=== PATIENT | female | born 1985 | race Caucasian/White ===

== ENCOUNTER 2020-05-11 06:55 | Day surgery (SDCO) | payer OTHER ==
[~2020-05-11 06:55] MED LIST: BUSPIRONE HCL10 MG PO; FLEXERIL5 MG PO; IBUPROFEN800 MG PO; KEFLEX500 MG PO; SEROQUEL 100MG100 MG PO; VENLAFAXINE HC150 MG PO; VOLTAREN **OUT50 MG PO
[2020-05-11] MEDS ORDERED: VRAYLAR1.5 MG PO (07:15)
[2020-05-11 07:17] LABS: HCG (URINE) SCREEN NEGATIVE (NEGATIVE)
[2020-05-11 07:32] LABS: HGB 13.8 g/dl (12.5-16.0); MCH 28.9 pg (25.0-31.0); MCHC 32.1 g/dL (32.0-36.0); MPV 10.6 fL (6.0-9.5); RBC 4.78 M/uL (4.20-5.40); RDW 13.2 % (11.5-14.0); WBC 4.7 K/uL (4.0-10.5)
[2020-05-11] MEDS ORDERED: PERCOCET 5-3251 EACH PO (12:02)
[2020-05-11] MEDS ORDERED: IBUPROFEN800 M1 PO (12:02)
[2020-05-11] MEDS ORDERED: COLACE100 MG PO (12:02)
[2020-05-11] MEDS ORDERED: ZOFRAN4 M1 PO (12:02)
== END 2020-05-11 13:00 | disposition home or self-care (01) ==
LOC: FSDC 06:55
PROVIDERS: ADMIT Obstetrics & Gynecology
DX: N72 Inflammatory disease of cervix uteri (principal); N80.0 Endometriosis of uterus; N73.6 Female pelvic peritoneal adhesions (postinfective); N32.89 Other specified disorders of bladder; N70.11 Chronic salpingitis; G47.30 Sleep apnea, unspecified; F17.210 Nicotine dependence, cigarettes, uncomplicated; F41.8 Other specified anxiety disorders; E78.5 Hyperlipidemia, unspecified; F31.9 Bipolar disorder, unspecified; Z79.899 Other long term (current) drug therapy; Z98.51 Tubal ligation status; Z99.89 Dependence on other enabling machines and devices
CPT/HCPCS: 36415; 84703; 86850; 86900; 86901; G0378; J0690; J0735; J1100; J2250; J2405; J2704; J2710; J3010; J7120